=== PATIENT | female | born 1955 | race Caucasian/White ===

== ENCOUNTER 2021-02-28 17:00 | Emergency (ER) | payer OTHER ==
[~2021-02-28 17:00] MED LIST: PREDNISONE 50 M50 MG PO
[2021-02-28] MEDS ORDERED: AUGMENTIN 875-1 EACH PO (17:52)
== END 2021-02-28 18:46 | disposition home or self-care (01) ==
LOC: ER1 17:00
DX: S61.452A Open bite of left hand, initial encounter (principal); E11.9 Type 2 diabetes mellitus without complications; I10 Essential (primary) hypertension; Z88.1 Allergy status to other antibiotic agents; Z88.8 Allergy status to other drugs, medicaments and biological substances; Z23 Encounter for immunization; W55.01XA Bitten by cat, initial encounter; Y92.009 Unspecified place in unspecified non-institutional (private) residence as the place of occurrence of the external cause
CPT/HCPCS: 90471; 90715; 99283

== ENCOUNTER 2021-06-16 10:58 | Emergency (ER) | payer OTHER ==
[~2021-06-16 10:58] MED LIST changes: +AUGMENTIN 875-1 EACH PO
[2021-06-16] MEDS ORDERED: TORADOL 10 MG T10 MG PO (14:48)
== END 2021-06-16 14:54 | disposition home or self-care (01) ==
LOC: ER1 10:58
DX: S70.01XA Contusion of right hip, initial encounter (principal); S70.02XA Contusion of left hip, initial encounter; S30.0XXA Contusion of lower back and pelvis, initial encounter; E11.9 Type 2 diabetes mellitus without complications; I10 Essential (primary) hypertension; W10.9XXA Fall (on) (from) unspecified stairs and steps, initial encounter; Y92.009 Unspecified place in unspecified non-institutional (private) residence as the place of occurrence of the external cause
CPT/HCPCS: 72072; 72100; 73522; 96372; 99283; J1885

== ENCOUNTER → 2022-01-18 | Outpatient (CLI) | payer OTHER ==
[~2022-01-18] MED LIST changes: +TORADOL 10 MG T10 MG PO
== END ==
LOC: KOH-I 08:46
DX: M54.6 Pain in thoracic spine (principal); M47.814 Spondylosis without myelopathy or radiculopathy, thoracic region
CPT/HCPCS: 72070

== ENCOUNTER 2022-05-05 13:38 | Emergency (ER) | payer OTHER ==
[2022-05-05 14:21] LABS: HEMOGLOBIN 13.6 gm/dl (12.3-15.3); RED BLOOD COUNT 4.42 M/UL (4.00-5.10); WHITE BLOOD COUNT 9.5 K/UL (4.5-11.0)
[2022-05-05 14:53] LABS: BUN/CREATININE RATIO 25 (0-10)
[2022-05-05] MEDS ORDERED: AMOX TR-K CLV1 EAC4 PO (15:58)
== END 2022-05-05 16:20 | disposition home or self-care (01) ==
LOC: ER1 13:38
PROVIDERS: Physician Assistant
DX: N39.0 Urinary tract infection, site not specified (principal); Z16.12 Extended spectrum beta lactamase (ESBL) resistance; E11.9 Type 2 diabetes mellitus without complications; I10 Essential (primary) hypertension; Z88.5 Allergy status to narcotic agent
CPT/HCPCS: 71045; 80053; 81001; 82550; 82553; 82962; 84439; 84443; 84484; 85025; 87040; 87077; 87086; 87186; 93005; 96374; 99285; J0692

== ENCOUNTER → 2022-06-01 | Outpatient (CLI) | payer OTHER ==
[~2022-06-01] MED LIST changes: +AMOX TR-K CLV1 EAC4 PO
== END ==
LOC: OPSV 13:41
DX: N39.0 Urinary tract infection, site not specified (principal); B96.20 Unspecified Escherichia coli [E. coli] as the cause of diseases classified elsewhere
CPT/HCPCS: 96365; J1335

== ENCOUNTER → 2022-06-02 | Outpatient (CLI) | payer OTHER ==
[~2022-06-02] VITALS: Ht 157.5 cm; Wt 60.8 kg
== END ==
LOC: OPSV 13:29
DX: N39.0 Urinary tract infection, site not specified (principal); B96.20 Unspecified Escherichia coli [E. coli] as the cause of diseases classified elsewhere
CPT/HCPCS: 96365; J1335

== ENCOUNTER → 2022-06-03 | Outpatient (CLI) | payer OTHER ==
[~2022-06-03] VITALS: Ht 157.5 cm; Wt 60.8 kg
== END ==
LOC: OPSV 13:37
DX: N39.0 Urinary tract infection, site not specified (principal); B96.20 Unspecified Escherichia coli [E. coli] as the cause of diseases classified elsewhere; M54.12 Radiculopathy, cervical region; F41.9 Anxiety disorder, unspecified; J30.9 Allergic rhinitis, unspecified; K50.90 Crohn's disease, unspecified, without complications; F32.A Depression, unspecified; E11.9 Type 2 diabetes mellitus without complications; E78.2 Mixed hyperlipidemia; I10 Essential (primary) hypertension
CPT/HCPCS: 96365; J1335

== ENCOUNTER → 2022-06-04 | Outpatient (CLI) | payer OTHER | LOC: OPSV 07:00 → EROP 08:25 | DX: N39.0 Urinary tract infection, site not specified (principal); B96.20 Unspecified Escherichia coli [E. coli] as the cause of diseases classified elsewhere | CPT/HCPCS: 96365; J1335 ==

== ENCOUNTER → 2022-06-05 | Outpatient (CLI) | payer OTHER | LOC: OPSV 07:00 → EROP 07:00 | DX: N39.0 Urinary tract infection, site not specified (principal); B96.20 Unspecified Escherichia coli [E. coli] as the cause of diseases classified elsewhere | CPT/HCPCS: 96365; J1335 ==

== ENCOUNTER → 2022-06-06 | Outpatient (CLI) | payer OTHER ==
[~2022-06-06] VITALS: Ht 157.5 cm; Wt 60.8 kg
== END ==
LOC: OPSV 13:48
DX: N39.0 Urinary tract infection, site not specified (principal); B96.20 Unspecified Escherichia coli [E. coli] as the cause of diseases classified elsewhere
CPT/HCPCS: 96365; J1335

== ENCOUNTER → 2022-06-07 | Outpatient (CLI) | payer OTHER ==
[~2022-06-07] VITALS: Ht 157.5 cm; Wt 60.8 kg
== END ==
LOC: OPSV 13:30
DX: N39.0 Urinary tract infection, site not specified (principal); A49.8 Other bacterial infections of unspecified site
CPT/HCPCS: 96365; J1335